=== PATIENT | female | born 1980 | race Caucasian/White ===

== ENCOUNTER 2018-09-10 14:57 | Emergency (ER) | payer OTHER, SELFPAY ==
[2018-09-10] MEDS ORDERED: TORAdol 30 mg Injection IM ONE (16:49)
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
[2018-09-10 18:02] VITALS: BP 110/93; PULSE 80
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
[2018-09-10 18:20] VITALS: O2SAT 99
== END 2018-09-10 18:36 | disposition home or self-care (01) ==
LOC: ED 14:57
DX: S00.93XA Contusion of unspecified part of head, initial encounter (principal); S40.022A Contusion of left upper arm, initial encounter; S40.021A Contusion of right upper arm, initial encounter; S00.432A Contusion of left ear, initial encounter; Y04.0XXA Assault by unarmed brawl or fight, initial encounter; S80.12XA Contusion of left lower leg, initial encounter; S20.222A Contusion of left back wall of thorax, initial encounter; S20.02XA Contusion of left breast, initial encounter; S20.01XA Contusion of right breast, initial encounter
CPT/HCPCS: 70450; 70486; 72125; 96372; 99284; J1885

== ENCOUNTER 2019-07-01 20:40 | Emergency (ER) | payer OTHER ==
[2019-07-01] MEDS ORDERED: Zofran 4 MG/2 ML VIAL IV ONE (20:59)
[2019-07-01] MEDS ORDERED: TORAdol 30 mg Injection IM ONE (20:59)
[2019-07-01] MEDS ORDERED: Lactated Ringers 1,000 ML IV ONE ×2 (20:59→21:23)
[2019-07-01] MEDS ORDERED: TORAdol 30 mg Injection ONE (21:23)
[2019-07-01] MEDS ORDERED: Zofran 4 MG/2 ML VIAL ONE (21:23)
[2019-07-01 21:35] LABS: Absolute Neutrophil Ct (ANC) 6.03 (1.4-6.9); BASOPHIL % 0.1 % (0.0-0.4); Basophil (Absolute #) 0.01 (0-0.4); Eosinophil % 0.8 % (0.00-5.0); Eosinophil (Absolute #) 0.08 (0-0.5); Hematocrit 40.1 % (35-47); Hemoglobin 13.1 gm/dl (12.0-16.0); Lymphocyte (Absolute #) 2.82 (1.0-4.6); Lymphocytes % 28.9 % (24.0-44.0); Mean Cell Volume 92.2 fl (78-100); Mean Corpuscular Hemoglobin 30.1 pg (26-32); Mean Corpuscular Hgb Concent. 32.7 g/dl (32-36); Mean Platelet Volume 9.2 fl (7.5-11.0); Monocyte (Absolute #) 0.82 (0.0-1.3); Monocytes % 8.4 % (0.0-12.0); Neutrophil % 61.8 % (36.0-66.0); Platelet Count 290 K/mm3 (150-450); Red Blood Count 4.35 M/mm3 (4.1-5.4); Red Cell Distribution Width 14.2 % (11.5-14.0); White Blood Count 9.8 K/mm3 (4.0-10.5)
[2019-07-01 21:43] LABS: ALBUMIN 4.4 g/dL (3.5-5.0); ALKALINE PHOSPHATASE 45 U/L (38-126); ANION GAP 14.1 MEQ/L (5-15); BLOOD UREA NITROGEN 14 mg/dL (7-17); CHLORIDE 108 mmol/L (98-107); Calcium 8.9 mg/dL (8.4-10.2); Carbon Dioxide 22 mmol/L (22-30); Creatinine 1 0.71 mg/dL (0.52-1.04); Glucose 105 mg/dL (74-106); LIPASE 31 U/L (23-300); Potassium 3.6 mmol/L (3.5-5.1); SGOT/AST 25 U/L (14-36); SGPT/ALT 17 U/L (0-35); SODIUM 141 mmol/L (137-145); Total Protein 7.9 g/dL (6.3-8.2)
[2019-07-01 21:44] LABS: ETHYL ALCOHOL < 10 mg/dL (0-10)
[2019-07-01 22:46] LABS: Appearance TURBID (CLEAR); Barbiturate,Urine NEGATIVE (NEGATIVE); Benzodiazepine,Urine NEGATIVE (NEGATIVE); Bilirubin NEGATIVE (NEGATIVE); Blood NEGATIVE Ery/ul (0-5); Cocaine,Urine NEGATIVE (NEGATIVE); Epithelial Cells RARE /HPF (FEW); Glucose NEGATIVE (NEGATIVE); Ketones TRACE (NEGATIVE); Leukocyte Esterase SMALL (NEGATIVE); Methadone,Urine NEGATIVE (NEGATIVE); Mucus SLIGHT /HPF (NEGATIVE); Nitrite NEGATIVE (NEGATIVE); Opiate,Urine NEGATIVE (NEGATIVE); PCP,Urine NEGATIVE (NEGATIVE); Protein,Urine Dip NEGATIVE (Negative); Specific Gravity 1.028 (1.005-1.025); THC,Urine NEGATIVE (NEGATIVE); Urobilinogen 2 mg/dL (0-1); WBC 0-2 /HPF (0-5)
[2019-07-01 23:17] LABS: Amphetamine,Urine POSITIVE (NEGATIVE)
[2019-07-02 00:18] VITALS: O2SAT 98
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
[2019-07-02 01:01] VITALS: BP 98/51; PULSE 76
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
== END 2019-07-02 01:16 | disposition home or self-care (01) ==
LOC: ED 20:40
DX: S60.222A Contusion of left hand, initial encounter (principal); S60.221A Contusion of right hand, initial encounter; S20.02XA Contusion of left breast, initial encounter; S20.01XA Contusion of right breast, initial encounter; S40.022A Contusion of left upper arm, initial encounter; S40.021A Contusion of right upper arm, initial encounter; S00.83XA Contusion of other part of head, initial encounter; S80.12XA Contusion of left lower leg, initial encounter; S80.11XA Contusion of right lower leg, initial encounter; S00.93XA Contusion of unspecified part of head, initial encounter; R51 Headache; M54.2 Cervicalgia; R07.9 Chest pain, unspecified; M79.605 Pain in left leg; M79.604 Pain in right leg; Y04.0XXA Assault by unarmed brawl or fight, initial encounter; R55 Syncope and collapse; Z72.0 Tobacco use
CPT/HCPCS: 36000; 36415; 70450; 71260; 72125; 73120; 73560; 74177; 80053; 80307; 81001; 83690; 85025; 96360; 96374; 99284; G0480; J1885; J2405

== ENCOUNTER 2019-11-03 20:47 | Emergency (ER) | payer OTHER ==
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
[2019-11-03] MEDS ORDERED: Pepcid 20 MG PO ONE (20:58)
[2019-11-03] MEDS ORDERED: solu-MEDROL 125 MG IM ONE (20:58)
[2019-11-03] MEDS ORDERED: BENADRYL 50 MG/ML IM ONE (20:58)
[2019-11-03 21:05] VITALS: O2SAT 99
[2019-11-03] MEDS ORDERED: BENADRYL 50 MG/ML ONE (21:06)
[2019-11-03] MEDS ORDERED: solu-MEDROL 125 MG ONE (21:06)
[2019-11-03] MEDS ORDERED: Pepcid 20 MG ONE (21:06)
[2019-11-03 21:34] VITALS: BP 138/76; PULSE 98
== END 2019-11-03 21:33 | disposition home or self-care (01) ==
LOC: ED 20:47
DX: L25.9 Unspecified contact dermatitis, unspecified cause (principal)
CPT/HCPCS: 96372; 99284; J1200; J2930; A9270-GY

== ENCOUNTER 2021-02-15 10:34 | Emergency (ER) | payer OTHER ==
[2021-02-15 11:03] VITALS: O2SAT 100
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
[2021-02-15 11:44] VITALS: BP 97/60; PULSE 86
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
== END 2021-02-15 11:55 | disposition home or self-care (01) ==
LOC: ED 10:34
DX: L03.116 Cellulitis of left lower limb (principal); L03.115 Cellulitis of right lower limb
CPT/HCPCS: 93970; 99283

== ENCOUNTER 2021-05-25 18:24 | Emergency (ER) | payer OTHER ==
--- NOTE | 2021-05-25 18:29 | ERPHSYRPT ---
- History of Present Illness Time Seen by Provider: 05/25/21 18:28 Source: patient Exam Limitations: no limitations Physician History: This is a 40-year-old white female who has a history of arthritis and has had a bilateral tubal ligation in the past and presents with approximately 2-day history of pain in the right groin as well as pain in the right calf. Patient recently returned home from a flight to [place]. Patient has a history of deep venous thrombosis in the past. She was on anticoagulant therapy for period of time. She is currently not on any anticoagulant therapy. Patient has no chest pain. She does not have any shortness of breath. She does state that there is some pressure in her bladder and she did notice some blood when she wiped area. Patient has no flank pain. She does not have fevers. She has no abdominal pain. Patient did not suffer any fall or acute traumatic injury. She has no known bleeding or clotting disorders Occurred: days ago (2) Quality: aching Severity of Pain-Max: mild Severity of Pain-Current: mild Lower Extremities Pain: leg: right (Calf), other: right (Groin) Modifying Factors: Improves With: movement Allergies/Adverse Reactions: No Known Drug Allergies Allergy (Verified 05/25/21 18:29) Home Medications: No Reportable Medications [No Reported Medications] 05/25/21 [History] Hx Tetanus, Diphtheria Vaccination/Date Given: Yes Hx Influenza Vaccination/Date Given: No Hx Pneumococcal Vaccination/Date Given: No Travel Risk - International Travel Have you traveled outside of the country in past 3 weeks: No - Coronavirus Screening Are you exhibiting any of the following symptoms?: No Close contact with a COVID-19 positive Pt in past 14-21 Days: No - Vaccine Status Have you recieved a Covid-19 vaccination: No - Review of Systems Constitutional: No Symptoms Eyes: No Symptoms Ears, Nose, & Throat: No Symptoms Respiratory: No Symptoms Cardiac: No Symptoms Abdominal/Gastrointestinal: No Symptoms Genitourinary Symptoms: No Symptoms Musculoskeletal: Other (Pain in right groin and right calf) Skin: No Symptoms Neurological: No Symptoms Psychological: No Symptoms Endocrine: No Symptoms Hematologic/Lymphatic: No Symptoms Immunological/Allergic: No Symptoms All Other Systems: Reviewed and Negative - Past Medical History Pertinent Past Medical History: Yes Neurological History: No Pertinent History ENT History: No Pertinent History Cardiac History: No Pertinent History Respiratory History: No Pertinent History Endocrine Medical History: No Pertinent History Musculoskeletal History: Arthritis GI Medical History: No Pertinent History History: No Pertinent History Psycho-Social History: No Pertinent History Female Reproductive Disorders: No Pertinent History - Past Surgical History Past Surgical History: Yes Neuro Surgical History: No Pertinent History Cardiac: No Pertinent History Respiratory: No Pertinent History Gastrointestinal: Cholecystectomy Genitourinary: No Pertinent History Musculoskeletal: Orthopedic Surgery Female Surgical History: No Pertinent History Other Surgical History: ANKLE - Social History Smoking Status: Current every day smoker How long have you smoked: yrs Exposure to second hand smoke: Yes Drug Use: none Patient Lives Alone: No - Nursing Vital Signs Nursing Vital Signs: Initial Vital Signs Temperature 96.6 F 05/25/21 18:30 Pulse Rate 105 H 05/25/21 18:30 Respiratory Rate 18 05/25/21 18:30 Blood Pressure 131/77 05/25/21 18:30 O2 Sat by Pulse Oximetry 98 05/25/21 18:30 Pain Scale Pain Intensity 8 - Physical Exam General Appearance: no apparent distress, alert, anxiety Eyes, Ears, Nose, Throat Exam: normal ENT inspection, moist mucous membranes Neck Exam: normal inspection, non-tender, supple, full range of motion Cardiovascular/Respiratory Exam: chest non-tender, no respiratory distress Gastrointestinal/Abdominal Exam: non-tender Back Exam: normal inspection, normal range of motion, vertebral tenderness, No CVA tenderness Hips Exam: bilateral: non-tender, normal inspection, normal range of motion Legs Exam: right leg: soft tissue tenderness (Right calf tenderness and tenderness in the right inguinal crease. No adenopathy), bilateral leg: normal inspection, normal range of motion, no evidence of injury Knees Exam: bilateral knee: non-tender, normal inspection, normal range of motion, no evidence of injury Ankle Exam: bilateral ankle: non-tender, normal inspection, normal range of motion, no evidence of injury Foot Exam: bilateral foot: non-tender, normal inspection, normal range of motion, no evidence of injury Neuro/Tendon Exam: normal sensation, normal motor functions, normal tendon functions Mental Status Exam: alert, oriented x 3, cooperative Skin Exam: normal color, warm, dry SpO2 Interpretation: normal O2 Delivery: Room Air - Course Nursing assessment & vital signs reviewed: Yes Ordered Tests: Active Orders 24 hr Category Date Time Status IV Insertion STAT Care 05/25/21 20:03 Active CHEST WITH CONTRAST [CT] Stat Exams 05/25/21 20:38 Taken VENOUS UNILAT/LIMITED EXTREMIT [US] Stat Exams 05/25/21 21:15 Taken CBC W DIFF Stat Lab 05/25/21 19:45 Completed CMP Stat Lab 05/25/21 19:45 Completed D-DIMER QUANTITATIVE Stat Lab 05/25/21 19:40 Completed UA W/RFX UR CULTURE Stat Lab 05/25/21 18:56 Completed Medication Summary Discontinued Medications Generic Name Dose Route Start Last Admin Trade Name Petty PRN Reason Stop Dose Admin Sodium Chloride 1,000 mls @ 999 mls/hr 05/25/21 20:03 05/25/21 21:11 Sodium Chloride 0.9% 1000 Ml IV 05/25/21 21:03 Infused .Q1H1M STA Infusion Sodium Chloride Confirm 05/25/21 20:07 Sodium Chloride 0.9% 1000 Ml Administered 05/25/21 20:08 Dose 1,000 mls @ ud .ROUTE .STK-MED ONE Morphine Sulfate 4 mg 05/25/21 20:22 05/25/21 20:57 Morphine Sulfate 4 Mg/Ml Injection IV 05/25/21 20:23 4 mg STAT ONE Administration Morphine Sulfate Confirm 05/25/21 20:55 Morphine Sulfate 4 Mg/Ml Injection Administered 05/25/21 20:56 Dose 4 mg .ROUTE .STK-MED ONE Ondansetron HCl 4 mg 05/25/21 20:22 05/25/21 20:57 Ondansetron Hcl 4 Mg/2 Ml Vial IV 05/25/21 20:23 4 mg STAT ONE Administration Ondansetron HCl Confirm 05/25/21 20:54 Ondansetron Hcl 4 Mg/2 Ml Vial Administered 05/25/21 20:55 Dose 4 mg .ROUTE .STK-MED ONE Lab/Rad Data: Laboratory Result Diagrams 05/25/21 19:45 05/25/21 19:45 Laboratory Results 05/25/21 05/25/21 05/25/21 Range/Units 19:45 19:45 19:40 WBC 7.9 (4.0-10.5) K/mm3 RBC 4.06 L (4.1-5.4) M/mm3 Hgb 11.7 L (12.0-16.0) gm/dl Hct 38.1 (35-47) % MCV 93.8 (78-100) fl MCH 28.8 (26-32) pg MCHC 30.7 L (32-36) g/dl RDW 14.9 H (11.5-14.0) % Plt Count 332 (150-450) K/mm3 MPV 9.1 (7.5-11.0) fl Gran % 67.6 H (36.0-66.0) % Eos # (Auto) 0.19 (0-0.5) Absolute Lymphs (auto) 1.69 (1.0-4.6) Absolute Monos (auto) 0.66 (0.0-1.3) Lymphocytes % 21.5 L (24.0-44.0) % Monocytes % 8.4 (0.0-12.0) % Eosinophils % 2.4 (0.00-5.0) % Basophils % 0.1 (0.0-0.4) % Absolute Granulocytes 5.31 (1.4-6.9) Basophils # 0.01 (0-0.4) D-Dimer 1278 H* (215-500) ng/mL Sodium 142 (137-145) mmol/L Potassium 3.9 (3.5-5.1) mmol/L Chloride 104 (98-107) mmol/L Carbon Dioxide 30 (22-30) mmol/L Anion Gap 11.9 (5-15) MEQ/L BUN 12 (7-17) mg/dL Creatinine 0.65 (0.52-1.04) mg/dL Estimated GFR > 60.0 ML/MIN Glucose 88 (74-106) mg/dL Calcium 8.5 (8.4-10.2) mg/dL Total Bilirubin 0.30 (0.2-1.3) mg/dL AST 15 (14-36) U/L ALT 10 (0-35) U/L Alkaline Phosphatase 54 (38-126) U/L Serum Total Protein 6.6 (6.3-8.2) g/dL Albumin 3.7 (3.5-5.0) g/dL Urine Color (YELLOW) Urine Appearance (CLEAR) Urine pH (5-6) Ur Specific [place] (1.005-1.025) Urine Protein (Negative) Urine Ketones (NEGATIVE) Urine Blood (0-5) Kelvin/ul Urine Nitrite (NEGATIVE) Urine Bilirubin (NEGATIVE) Urine Urobilinogen (0-1) mg/dL Ur Leukocyte Esterase (NEGATIVE) Urine WBC (Auto) (0-5) /HPF Urine RBC (Auto) (0-2) /HPF U Epithel Cells (Auto) (FEW) /HPF Urine Bacteria (Auto) (NEGATIVE) /HPF Urine Mucus (Auto) (NEGATIVE) /HPF Urine Culture Reflexed (NO) Urine Glucose (NEGATIVE) mg/dL 05/25/21 Range/Units 18:56 WBC (4.0-10.5) K/mm3 RBC (4.1-5.4) M/mm3 Hgb (12.0-16.0) gm/dl Hct (35-47) % MCV (78-100) fl MCH (26-32) pg MCHC (32-36) g/dl RDW (11.5-14.0) % Plt Count (150-450) K/mm3 MPV (7.5-11.0) fl Gran % (36.0-66.0) % Eos # (Auto) (0-0.5) Absolute Lymphs (auto) (1.0-4.6) Absolute Monos (auto) (0.0-1.3) Lymphocytes % (24.0-44.0) % Monocytes % (0.0-12.0) % Eosinophils % (0.00-5.0) % Basophils % (0.0-0.4) % Absolute Granulocytes (1.4-6.9) Basophils # (0-0.4) D-Dimer (215-500) ng/mL Sodium (137-145) mmol/L Potassium (3.5-5.1) mmol/L Chloride (98-107) mmol/L Carbon Dioxide (22-30) mmol/L Anion Gap (5-15) MEQ/L BUN (7-17) mg/dL Creatinine (0.52-1.04) mg/dL Estimated GFR ML/MIN Glucose (74-106) mg/dL Calcium (8.4-10.2) mg/dL Total Bilirubin (0.2-1.3) mg/dL AST (14-36) U/L ALT (0-35) U/L Alkaline Phosphatase (38-126) U/L Serum Total Protein (6.3-8.2) g/dL Albumin (3.5-5.0) g/dL Urine Color YELLOW (YELLOW) Urine Appearance SLIGHTLY CLOUDY (CLEAR) Urine pH 5.0 (5-6) Ur Specific [place] 1.026 (1.005-1.025) Urine Protein NEGATIVE (Negative) Urine Ketones NEGATIVE (NEGATIVE) Urine Blood LARGE (0-5) Kelvin/ul Urine Nitrite NEGATIVE (NEGATIVE) Urine Bilirubin NEGATIVE (NEGATIVE) Urine Urobilinogen NEGATIVE (0-1) mg/dL Ur Leukocyte Esterase NEGATIVE (NEGATIVE) Urine WBC (Auto) 0-2 (0-5) /HPF Urine RBC (Auto) 0-2 (0-2) /HPF U Epithel Cells (Auto) RARE (FEW) /HPF Urine Bacteria (Auto) NONE (NEGATIVE) /HPF Urine Mucus (Auto) SLIGHT (NEGATIVE) /HPF Urine Culture Reflexed NO (NO) Urine Glucose NEGATIVE (NEGATIVE) mg/dL - Progress Progress: improved, re-examined Progress Note: 05/25/21 21:20 Right lower extremity venous Doppler shows no evidence of deep venous thr ombosis. CAT scan of the chest with contrast shows no evidence of pulmonary embolus. There are no acute cardiopulmonary processes. Counseled pt/family regarding: lab results, diagnosis, need for follow-up, rad results - Departure Departure Disposition: Home Clinical Impression: Right leg pain, Elevated d-dimer Condition: Stable Critical Care Time: No Referrals: NESTOR GIMENEZ [ACTIVE STAFF] - Follow up/PCP as directed Additional Instructions: Use Tylenol and ibuprofen for pain control. Follow-up with your prescribing physician for further evaluation and management.
[2021-05-25 19:25] LABS: Appearance SLIGHTLY CLOUDY (CLEAR); Bilirubin NEGATIVE (NEGATIVE); Blood LARGE Ery/ul (0-5); Epithelial Cells RARE /HPF (FEW); Glucose NEGATIVE (NEGATIVE); Ketones NEGATIVE (NEGATIVE); Leukocyte Esterase NEGATIVE (NEGATIVE); Mucus SLIGHT /HPF (NEGATIVE); Nitrite NEGATIVE (NEGATIVE); Protein,Urine Dip NEGATIVE (Negative); RBC 0-2 /HPF (0-2); Specific Gravity 1.026 (1.005-1.025); Urobilinogen NEGATIVE mg/dL (0-1); WBC 0-2 /HPF (0-5)
[2021-05-25 19:54] VITALS: O2SAT 99
[2021-05-25] MEDS ORDERED: Sodium Chloride 0.9% 1000 ML 1,000 ML IV STA (20:03)
[2021-05-25 20:04] VITALS: BP 102/65; PULSE 100
[2021-05-25] MEDS ORDERED: Sodium Chloride 0.9% 1000 ML 1,000 ML ONE (20:07)
[2021-05-25 20:11] LABS: Absolute Neutrophil Ct (ANC) 5.31 (1.4-6.9); Basophil (Absolute #) 0.01 (0-0.4); Eosinophil % 2.4 % (0.00-5.0); Eosinophil (Absolute #) 0.19 (0-0.5); Hematocrit 38.1 % (35-47); Hemoglobin 11.7 gm/dl (12.0-16.0); Lymphocyte (Absolute #) 1.69 (1.0-4.6); Lymphocytes % 21.5 % (24.0-44.0); Mean Cell Volume 93.8 fl (78-100); Mean Corpuscular Hemoglobin 28.8 pg (26-32); Mean Corpuscular Hgb Concent. 30.7 g/dl (32-36); Mean Platelet Volume 9.1 fl (7.5-11.0); Monocyte (Absolute #) 0.66 (0.0-1.3); Monocytes % 8.4 % (0.0-12.0); Neutrophil % 67.6 % (36.0-66.0); Platelet Count 332 K/mm3 (150-450); Red Blood Count 4.06 M/mm3 (4.1-5.4); Red Cell Distribution Width 14.9 % (11.5-14.0); White Blood Count 7.9 K/mm3 (4.0-10.5)
[2021-05-25 20:17] LABS: ALBUMIN 3.7 g/dL (3.5-5.0); ALKALINE PHOSPHATASE 54 U/L (38-126); ANION GAP 11.9 MEQ/L (5-15); BLOOD UREA NITROGEN 12 mg/dL (7-17); CHLORIDE 104 mmol/L (98-107); Calcium 8.5 mg/dL (8.4-10.2); Carbon Dioxide 30 mmol/L (22-30); Creatinine 1 0.65 mg/dL (0.52-1.04); EST GLOMERULAR FILTRATION RATE > 60.0 ML/MIN; Glucose 88 mg/dL (74-106); Potassium 3.9 mmol/L (3.5-5.1); SGOT/AST 15 U/L (14-36); SGPT/ALT 10 U/L (0-35); SODIUM 142 mmol/L (137-145); Total Protein 6.6 g/dL (6.3-8.2)
[2021-05-25] MEDS ORDERED: Zofran 4 MG/2 ML VIAL IV ONE (20:22)
[2021-05-25] MEDS ORDERED: MORPHINE SULFATE 4 MG INJ IV ONE (20:22)
[2021-05-25] MEDS ORDERED: Zofran 4 MG/2 ML VIAL ONE (20:54)
[2021-05-25] MEDS ORDERED: MORPHINE SULFATE 4 MG INJ ONE (20:55)
--- NOTE | 2021-05-26 08:41 | XRAY ---
Indication: Short of breath. Elevated d-dimer. History DVT. Multiple contiguous axial images obtained through the chest using 100 cc Isovue 370 contrast and PE protocol. Comparison: July 01, 2019. There is good opacification of the pulmonary arteries to include the lobar and segmental branches. No pulmonary embolus. Heart not enlarged. Aorta is normal in course and caliber. Stable tiny mediastinal and right hilar calcified nodes. No pathologic mediastinal/hilar lymphadenopathy. Lungs demonstrates stable right middle lobe calcified granuloma. No suspicious pulmonary mass, infiltrate, effusion, or pneumothorax. Bony thorax intact. Limited upper abdomen demonstrates previous CT proven right adrenal adenoma, mild fatty liver, splenic calcified granuloma, and cholecystectomy clips. Impression: 1. Negative pulmonary embolus. No new/acute cardiopulmonary abnormalities. 2. Again incidental fatty liver, right adrenal adenoma, and old granulomatous disease.
--- NOTE | 2021-05-26 08:43 | XRAY ---
Indication: Right calf pain. History DVT. Two-dimensional sonogram and color Doppler imaging of the major venous vessels of the right leg performed. Comparison: February 15, 2021. No thrombus seen in the examined deep venous vessels of the right leg including greater saphenous vein. Veins demonstrate normal compressibility. Venous waveforms are normal with and without augmentation. Impression: Right leg remains negative for DVT. Comment: Preliminary report was given.
== END 2021-05-25 21:35 | disposition home or self-care (01) ==
LOC: ED 18:24
DX: M79.661 Pain in right lower leg (principal); R10.2 Pelvic and perineal pain; R79.1 Abnormal coagulation profile; Z86.718 Personal history of other venous thrombosis and embolism; Z72.0 Tobacco use
CPT/HCPCS: 36000; 36415; 71260; 80053; 81001; 85025; 85379; 93971; 96374; 96375; 99284; J2270; J2405

== ENCOUNTER 2024-02-26 20:06 | Emergency (ER) | payer OTHER ==
--- NOTE | 2024-02-26 20:27 | ERPHSYRPT ---
- History of Present Illness Time Seen by Provider: 02/26/24 20:20 Historian: patient Exam Limitations: no limitations Physician History: 43yo f presents via private vehicle for LUQ pain x 3d. Pt reports the pain feels like a tightness and feels like her abdomen is stretching in the LUQ. Pt denies any n/v/d. Pt denies any recent trauma or increase in physical activity. Pt reports hx of tubal ligation and cholecystectomy. Pt has not taken any medications for her sx. Pt denies any significant alcohol use. Last BM today. Timing/Duration: day(s) (3) Activities at Onset: activity Quality: tightness Abdominal Pain Onset Location: LUQ Pain Radiation: no radiation Severity of Pain-Max: mild Severity of Pain-Current: mild Modifying Factors: Improves With: nothing Associated Symptoms: No back, No chest pain, No diaphoresis, No diarrhea, No fever/chills, No nausea, No vomiting Previous symptoms: no prior history Allergies/Adverse Reactions: No Known Drug Allergies Allergy (Verified 02/26/24 20:31) Home Medications: No Reportable Medications [No Reported Medications] 05/25/21 [History] Hx Tetanus, Diphtheria Vaccination/Date Given: Yes Hx Influenza Vaccination/Date Given: No Hx Pneumococcal Vaccination/Date Given: No - Review of Systems Constitutional: No Symptoms Respiratory: No Symptoms Cardiac: No Symptoms Abdominal/Gastrointestinal: Abdominal Pain, No Nausea, No Vomiting, No Diarrhea, No Constipation - Past Medical History Pertinent Past Medical History: Yes Neurological History: No Pertinent History ENT History: No Pertinent History Cardiac History: No Pertinent History Respiratory History: No Pertinent History Endocrine Medical History: No Pertinent History Musculoskeletal History: Arthritis GI Medical History: No Pertinent History History: No Pertinent History Psycho-Social History: No Pertinent History Female Reproductive Disorders: No Pertinent History - Past Surgical History Past Surgical History: Yes Neuro Surgical History: No Pertinent History Cardiac: No Pertinent History Respiratory: No Pertinent History Gastrointestinal: Cholecystectomy Genitourinary: No Pertinent History Musculoskeletal: Orthopedic Surgery Female Surgical History: No Pertinent History Other Surgical History: ANKLE - Female History Hx Last Menstrual Period: 08/26/12 - Social History Smoking Status: Current every day smoker How long have you smoked: yrs Exposure to second hand smoke: Yes Drug Use: none Patient Lives Alone: No - Nursing Vital Signs Nursing Vital Signs: Initial Vital Signs Temperature 98.1 F 02/26/24 20:11 Pulse Rate 104 H 02/26/24 20:11 Respiratory Rate 18 02/26/24 20:11 Blood Pressure 136/81 02/26/24 20:11 O2 Sat by Pulse Oximetry 99 02/26/24 20:11 Pain Scale Pain Intensity 0 - Physical Exam General Appearance: no apparent distress, alert Respiratory Exam: normal breath sounds, lungs clear, airway intact, No chest tenderness, No respiratory distress Cardiovascular Exam: regular rate/rhythm, normal heart sounds, normal peripheral pulses Gastrointestinal/Abdomen Exam: soft, normal bowel sounds, No tenderness, No distention, No mass, No guarding - Course EKG Interpreted by Me: RATE (93), Sinus Rhythm, Other (qtcb 455, not suggestive of acute ischemia) Ordered Tests: Active Orders 24 hr Category Date Time Status EKG-ER Only STAT Care 02/26/24 20:21 Active IV Insertion STAT Care 02/26/24 20:55 Active ABDOMEN AND PELVIS W CONTRAST [CT] Stat Exams 02/26/24 20:22 Taken CBC W DIFF Stat Lab 02/26/24 20:50 Completed CMP Stat Lab 02/26/24 20:50 Completed CULTURE,URINE Stat Lab 02/26/24 20:32 Received LIPASE Stat Lab 02/26/24 20:50 Completed TROPONIN Q4H Lab 02/26/24 20:50 Completed TROPONIN Q4H Lab 02/27/24 00:30 Ordered TROPONIN Q4H Lab 02/27/24 04:30 Ordered UA W/RFX UR CULTURE Stat Lab 02/26/24 20:32 Completed Medication Summary Discontinued Medications Generic Name Dose Route Start Last Admin Trade Name Petty PRN Reason Stop Dose Admin Acetaminophen 975 mg 02/26/24 20:21 02/26/24 20:31 Acetaminophen 325 Mg Tablet PO 02/26/24 20:22 975 mg STAT ONE Administration Acetaminophen Confirm 02/26/24 20:30 Acetaminophen 325 Mg Tablet Administered 02/26/24 20:31 Dose 975 mg .ROUTE .STK-MED ONE Lab/Rad Data: Laboratory Result Diagrams 02/26/24 20:50 02/26/24 20:50 Laboratory Results 02/26/24 02/26/24 02/26/24 Range/Units 20:50 20:50 20:50 WBC 10.4 H (3.98-10.04) x10^3/uL RBC 3.96 (3.93-5.22) x10^6/uL Hgb 11.5 (11.2-15.7) g/dL Hct 35.9 (34.1-44.9) % MCV 90.7 (79.4-94.8) fL MCH 29.0 (25.6-32.2) pg MCHC 32.0 L (32.2-35.5) g/dL RDW 14.2 (11.7-14.4) % Plt Count 271 (182-369) x10^3/uL MPV 8.6 L (9.4-12.3) fL Gran % 65.3 (34.0-71.1) % Immature Gran % (Auto) 0.6 H (0.001-0.429) % Nucleat RBC Rel Count 0.0 (0.00-0.2) % Eos # (Auto) 0.26 (0.04-0.36) x10^3/uL Immature Gran # (Auto) 0.06 H (0.001-0.031) x10^3u/L Absolute Lymphs (auto) 2.63 (1.18-3.74) x10^3/uL Absolute Monos (auto) 0.61 (0.24-0.86) x10^3/uL Absolute Nucleated RBC 0.00 (0.00-0.012) x10^3u/L Lymphocytes % 25.4 (19.3-51.7) % Monocytes % 5.9 (4.7-12.5) % Eosinophils % 2.5 (0.7-5.8) % Basophils % 0.3 (0.1-1.2) % Absolute Granulocytes 6.78 H (1.56-6.13) x10^3/uL Basophils # 0.03 (0.01-0.08) x10^3/uL Sodium 140 (135-145) mmol/L Potassium 4.2 (3.5-5.1) mmol/L Chloride 103 (98-107) mmol/L Carbon Dioxide 31 H (22-30) mmol/L Anion Gap 9.8 (5-15) MEQ/L BUN 14 (7-17) mg/dL Creatinine 0.89 (0.52-1.04) mg/dL Estimated GFR 83.5 ML/MIN Glucose 94 (74-106) mg/dL Calcium 8.3 L (8.4-10.2) mg/dL Total Bilirubin 0.20 (0.2-1.3) mg/dL AST 34 (14-36) U/L ALT 28 (0-35) U/L Alkaline Phosphatase 52 (38-126) U/L Troponin I < 0.012 (0.000-0.033) ng/mL Serum Total Protein 6.8 (6.3-8.2) g/dL Albumin 3.8 (3.5-5.0) g/dL Lipase 117 (23-300) U/L Urine Color (Yellow) Urine Appearance (Clear) Urine pH (4.6-8.0) Ur Specific [place] (1.005-1.030) Urine Protein (Negative) Urine Glucose (UA) (Negative) mg/dL Urine Ketones (Negative) Urine Blood (Negative) Urine Nitrite (Negative) Urine Bilirubin (Negative) Urine Urobilinogen (0.2) mg/dL Ur Leukocyte Esterase (Negative) U Hyaline Cast (Auto) (0-2) /LPF Urine Microscopic RBC (0-5) /HPF Urine Microscopic WBC (0-5) /HPF Ur Epithelial Cells (None Seen) /HPF Urine Bacteria (None Seen) /HPF Urine Culture Reflexed (NO) 02/26/24 Range/Units 20:32 WBC (3.98-10.04) x10^3/uL RBC (3.93-5.22) x10^6/uL Hgb (11.2-15.7) g/dL Hct (34.1-44.9) % MCV (79.4-94.8) fL MCH (25.6-32.2) pg MCHC (32.2-35.5) g/dL RDW (11.7-14.4) % Plt Count (182-369) x10^3/uL MPV (9.4-12.3) fL Gran % (34.0-71.1) % Immature Gran % (Auto) (0.001-0.429) % Nucleat RBC Rel Count (0.00-0.2) % Eos # (Auto) (0.04-0.36) x10^3/uL Immature Gran # (Auto) (0.001-0.031) x10^3u/L Absolute Lymphs (auto) (1.18-3.74) x10^3/uL Absolute Monos (auto) (0.24-0.86) x10^3/uL Absolute Nucleated RBC (0.00-0.012) x10^3u/L Lymphocytes % (19.3-51.7) % Monocytes % (4.7-12.5) % Eosinophils % (0.7-5.8) % Basophils % (0.1-1.2) % Absolute Granulocytes (1.56-6.13) x10^3/uL Basophils # (0.01-0.08) x10^3/uL Sodium (135-145) mmol/L Potassium (3.5-5.1) mmol/L Chloride (98-107) mmol/L Carbon Dioxide (22-30) mmol/L Anion Gap (5-15) MEQ/L BUN (7-17) mg/dL Creatinine (0.52-1.04) mg/dL Estimated GFR ML/MIN Glucose (74-106) mg/dL Calcium (8.4-10.2) mg/dL Total Bilirubin (0.2-1.3) mg/dL AST (14-36) U/L ALT (0-35) U/L Alkaline Phosphatase (38-126) U/L Troponin I (0.000-0.033) ng/mL Serum Total Protein (6.3-8.2) g/dL Albumin (3.5-5.0) g/dL Lipase (23-300) U/L Urine Color Yellow (Yellow) Urine Appearance Clear (Clear) Urine pH 8.0 (4.6-8.0) Ur Specific [place] 1.015 (1.005-1.030) Urine Protein Negative (Negative) Urine Glucose (UA) Negative (Negative) mg/dL Urine Ketones Negative (Negative) Urine Blood Negative (Negative) Urine Nitrite Negative (Negative) Urine Bilirubin Negative (Negative) Urine Urobilinogen 1.0 A (0.2) mg/dL Ur Leukocyte Esterase Small A (Negative) U Hyaline Cast (Auto) NONE SEEN (0-2) /LPF Urine Microscopic RBC 0-2 (0-5) /HPF Urine Microscopic WBC 21-50 A (0-5) /HPF Ur Epithelial Cells None Seen (None Seen) /HPF Urine Bacteria None Seen (None Seen) /HPF Urine Culture Reflexed YES (NO) - Progress Progress: improved Progress Note: 02/26/24 22:02 pain resolved w/ dose of tylenol labs largely unremarkable, no significant signs of infection, UA not suggestive of cystitis CT abd/pel w/ contrast showed: compared to 07/01/19 - stable small R adrenal adenoma, mild sigmoid diverticulosis and mild diffuse fecal stasis. No new/acute findings plan for dc home w/ PCP follow up ([facility]) recommend oral hydration w/ plenty of clear liquids, electrolyte containing fluids recommend OTC stool softener like miralax or colace can use tylenol/ibuprofen for discomfort return to ED if: develop bloody vomit or stools, develop chest pain, pain becomes unbearable Counseled pt/family regarding: lab results, diagnosis, need for follow-up, rad results Medical Desision Making - Diagnostic Testing Diagnostic test were ordered, analyzed, and reviewed by me: Yes Radiological Interpretation: Reviewed by me, Teleradiologist Report - Risk of complications Minimal Risk: Minimal risk of morbidity - Departure Departure Disposition: Home Clinical Impression: LUQ abdominal pain Condition: Stable Critical Care Time: No Referrals: RAVEN DOW [Primary Care Provider] - Follow up/PCP as directed Additional Instructions: plan for dc home w/ PCP follow up ([place]) recommend oral hydration w/ plenty of clear liquids, electrolyte containing fluids recommend OTC stool softener like miralax or colace can use tylenol/ibuprofen for discomfort return to ED if: develop bloody vomit or stools, develop chest pain, pain becomes unbearable
[2024-02-26 20:30] VITALS: TEMP 98.1
[2024-02-26] MEDS ORDERED: TYLENOL 325 MG ONE (20:30)
[2024-02-26] MEDS: TYLENOL 325 MG PO ONE (20:31)
[2024-02-26 20:50] LABS: Appearance Clear (Clear); Bacteria None Seen /HPF (None Seen); Bilirubin Negative (Negative); Blood Negative (Negative); Epithelial Cells None Seen /HPF (None Seen); Glucose, Urine Negative (Negative); Hyaline Casts NONE SEEN /LPF (0-2); Ketones Negative (Negative); Leukocyte Esterase Small (Negative); Nitrite Negative (Negative); Protein,Urine Dip Negative (Negative); RBC 0-2 /HPF (0-5); Specific Gravity 1.015 (1.005-1.030); WBC 21-50 /HPF (0-5)
[2024-02-26 20:54] LABS: Absolute Neutrophil Ct (ANC) 6.78 x10^3/uL (1.56-6.13); BASOPHIL % 0.3 % (0.1-1.2); Basophil (Absolute #) 0.03 x10^3/uL (0.01-0.08); Eosinophil % 2.5 % (0.7-5.8); Eosinophil (Absolute #) 0.26 x10^3/uL (0.04-0.36); Hematocrit 35.9 % (34.1-44.9); Hemoglobin 11.5 g/dL (11.2-15.7); IMMATURE GRAN # 0.06 x10^3u/L (0.001-0.031); IMMATURE GRAN % 0.6 % (0.001-0.429); Lymphocyte (Absolute #) 2.63 x10^3/uL (1.18-3.74); Lymphocytes % 25.4 % (19.3-51.7); Mean Cell Volume 90.7 fL (79.4-94.8); Mean Platelet Volume 8.6 fL (9.4-12.3); Monocyte (Absolute #) 0.61 x10^3/uL (0.24-0.86); Monocytes % 5.9 % (4.7-12.5); Neutrophil % 65.3 % (34.0-71.1); Platelet Count 271 x10^3/uL (182-369); Red Blood Count 3.96 x10^6/uL (3.93-5.22); Red Cell Distribution Width 14.2 % (11.7-14.4); White Blood Count 10.4 x10^3/uL (3.98-10.04)
[2024-02-26 21:25] LABS: ALBUMIN 3.8 g/dL (3.5-5.0); ANION GAP 9.8 MEQ/L (5-15); BILIRUBIN,TOTAL 0.2 mg/dL (0.2-1.3); Calcium 8.3 mg/dL (8.4-10.2); Creatinine 1 0.89 mg/dL (0.52-1.04); EST GLOMERULAR FILTRATION RATE 83.5 ML/MIN; Potassium 4.2 mmol/L (3.5-5.1); Total Protein 6.8 g/dL (6.3-8.2)
[2024-02-26 22:04] VITALS: BP 121/96; PULSE 102; RESP 19; O2SAT 97
--- NOTE | 2024-02-27 08:33 | XRAY ---
Indication: Left abdomen pain. Multiple contiguous axial images obtained through the abdomen and pelvis using 80 cc Isovue 370 contrast. Comparison: July 01, 2019 Lung bases remain clear again with incidental small right middle lobe calcified granuloma. Heart not enlarged. Stomach is distended with food/fluid. Noncontrasted stomach and bowel loops appear nonobstructed with normal appendix. Again mild diffuse scattered colonic fecal debris, mild sigmoid diverticulosis without diverticulitis, and cholecystectomy. Stable small right adrenal adenoma and splenic calcified granuloma. No free fluid/air. Remaining liver, pancreas, spleen, adrenal glands, kidneys, ureters, bladder, uterus, and aorta are unremarkable. No pathologic retroperitoneal lymphadenopathy. Osseous structures intact again with minimal degenerative changes throughout the spine. Impression: 1. Again mild diffuse fecal stasis, sigmoid diverticulosis, right adrenal adenoma, and old granulomatous disease. 2. Remaining CT abdomen/pelvis with contrast exam continues to be negative.
== END 2024-02-26 22:12 | disposition home or self-care (01) ==
LOC: ED 20:06
DX: R10.12 Left upper quadrant pain (principal); Z72.0 Tobacco use
CPT/HCPCS: 36000; 36415; 74177; 80053; 81001; 83690; 84484; 85025; 87077; 87086; 87186; 93005; 99284; 99285; A9270-GY